=== PATIENT | female | born 1945 | race Caucasian/White ===

== ENCOUNTER 2017-06-07 10:10 | Emergency (ER) | payer MEDICARE ==
[2017-06-07] MEDS ORDERED: Sodium Chloride 0.9% 10 ML Syringe FLUSH PRN (10:23)
[2017-06-07] MEDS ORDERED: Ondansetron 4 MG/2 ML SDV IVPUSH ONE (10:25)
[2017-06-07] MEDS ORDERED: HYDROmorphone 2 MG/ML SDV IVPUSH ONE (10:25)
[2017-06-07] MEDS ORDERED: Sodium Chloride 0.9% 1,000 ML IV SCH (10:30)
[2017-06-07] MEDS ORDERED: Iopamidol 755 Mg/ML 100 ML Bottle IV ONE (11:44)
--- NOTE | 2017-06-07 12:03 | EDM.PDOC ---
ED HPI GENERAL MEDICAL PROBLEM - General Chief Complaint: Abdominal Pain Stated Complaint: STOMACH PAIN Time Seen by Provider: 06/07/17 10:10 Source of Information: Reports: Patient, Family History Limitations: Reports: No Limitations - History of Present Illness INITIAL COMMENTS - FREE TEXT/NARRATIVE: 71 y.o..f came to the ed with her son due to gen abd. pain and left lower back pain for several week. Her main complain is gen abd. pain. pt has her GB, appendix and both ovaries removed. BP 185/85 puls 71 BPM. No F/C. pt feels week and has a difficult time walking due to abd. pain. No blood in stool. Pt denied any other acute medical issues. Onset: Unknown/Unsure Onset Date: 06/03/17 Onset Time: 06:34 Duration: Week(s): Location: Reports: Abdomen Quality: Reports: Burning, Pressure, Same as Previous Episode Severity: Moderate Improves with: Reports: Medication Worsens with: Reports: None Context: Reports: Other (gen abd. pain and loose stool for weeks, no travel history) Associated Symptoms: Reports: Weakness, Other (diarrhea) Treatments [employer]: Reports: Other (see below) (Pt is on Nitrofurantoin for a UTI) abdomen Pain Score (Numeric/FACES): 8 - Related Data Allergies Allergy/AdvReac Type Severity Reaction Status Date / Time duloxetine [From Cymbalta] Allergy Vomiting Verified 06/07/17 11:23 iopamidol Allergy Airway Verified 06/07/17 12:16 Tightness Penicillins Allergy Rash Verified 06/07/17 11:23 Sulfa (Sulfonamide Allergy Rash Verified 06/07/17 11:23 Antibiotics) trimethoprim Allergy Vomiting Verified 06/07/17 11:23 Home Meds: Home Meds Aspirin [Lo-Dose Aspirin EC] 81 mg PO DAILY 06/07/17 [History] Atenolol [Tenormin] 75 mg PO DAILY 06/07/17 [History] Citalopram Hydrobromide [Celexa] 10 mg PO BEDTIME 06/07/17 [History] Insulin Degludec [Tresiba Flextouch U-100] 48 units SQ BEDTIME 06/07/17 [History ] L.acidoph,Paracasei, B.lactis [Probiotic] 1 each PO DAILY 06/07/17 [History] Losartan [Cozaar] 100 mg PO DAILY 06/07/17 [History] Multivitamin [Multivitamins] 1 each PO DAILY 06/07/17 [History] Nitrofurantoin Monohyd/M-Cryst [Macrobid 100 mg Capsule] 100 mg PO BID 06/07/17 [History] Omeprazole 20 mg PO DAILY 06/07/17 [History] Simvastatin [Zocor] 40 mg PO BEDTIME 06/07/17 [History] SitaGLIPtin [Januvia] 100 mg PO DAILY 06/07/17 [History] Vitamin B Complex 1 each PO DAILY 06/07/17 [History] amLODIPine [Norvasc] 2.5 mg PO DAILY 06/07/17 [History] ED ROS GENERAL - Review of Systems Review Of Systems: See Below Constitutional: Reports: Weakness HEENT: Reports: No Symptoms Respiratory: Reports: No Symptoms Cardiovascular: Reports: No Symptoms Endocrine: Reports: No Symptoms GI/Abdominal: Reports: Abdominal Pain (generalized) : Reports: No Symptoms Musculoskeletal: Reports: No Symptoms Skin: Reports: No Symptoms Neurological: Reports: No Symptoms Psychiatric: Reports: No Symptoms Hematologic/Lymphatic: Reports: No Symptoms Immunologic: Reports: No Symptoms ED EXAM, GI/ABD - Physical Exam Exam: See Below Exam Limited By: No Limitations General Appearance: Alert, WD/WN, Mild Distress Eyes: Bilateral: Normal Appearance Ears: Normal External Exam Nose: Normal Inspection Throat/Mouth: Normal Inspection, Normal Lips, Normal Voice, No Airway Compromise Head: Atraumatic, Normocephalic Neck: Normal Inspection, Supple, Non-Tender, Full Range of Motion Respiratory/Chest: No Respiratory Distress, Lungs Clear, Normal Breath Sounds Cardiovascular: Normal Peripheral Pulses, Regular Rate, Rhythm, No Edema, No Gallop GI/Abdominal Exam: Abnormal Bowel Sounds (hyperactive BS) (Female) Exam: Deferred Rectal (Female) Exam: Deferred Back Exam: Normal Inspection, Full Range of Motion Extremities: Normal Inspection, Normal Range of Motion, Non-Tender, No Pedal Edema, Normal Capillary Refill Neurological: Alert, Oriented, CN II-XII Intact, Normal Cognition, Normal Gait, No Motor/Sensory Deficits Psychiatric: Normal Affect, Normal Mood Skin Exam: Warm, Dry, Intact, Normal Color, No Rash Lymphatic: No Adenopathy Course - Vital Signs Text/Narrative:: 71 y.o..f came to the ed with her son due to gen abd. pain and left lower back pain for several week. Her main complain is gen abd. pain. pt has her GB, appendix and both ovaries removed. BP 185/85 puls 71 BPM. No F/C. pt feels week and has a difficult time walking due to abd. pain. No blood in stool. Pt denied any other acute medical issues. Pt stated she is allergic only to IV Iodine contrast material. Pt had a colonoscopy 20 years ago (?) PE: WNWD WF c/o gen abd. pain difficulty ambulating. Labs: CBC and BMP WNL, Stool WBC and Culture pending ImagingL CT abd. pelvis: NAD, possible Enteritis, as per Dr. Laughlin. Impression: Gen abd. pain with diarrhea. DDx: Enteritis, IBD TX: Dilaudid, Zofran Reexam: Improved. I have offered to take imodium for diarrhea, F/U with the PMD awaiting lab result and treat the symptoms accordingly Plan: D/C with instructions Last Recorded V/S: Last Vital Signs Temp 37.2 C 06/07/17 14:00 Pulse 62 06/07/17 14:00 Resp 16 06/07/17 14:00 BP 145/68 H 06/07/17 14:00 Pulse Ox 99 06/07/17 14:00 - Orders/Labs/Meds Orders: Active Orders 24 hr Category Date Time Status CDIFF TOXIN A+B GROUP [OP] Stat Lab 06/07/17 12:15 Received CULTURE-STOOL [MREF] Stat Lab 06/07/17 12:15 Received LACTOFERRIN, FECAL BY ZAKI [REF] Stat Lab 06/07/17 12:15 Received Peripheral IV Insertion Adult [OM.PC] Routine Oth 06/07/17 10:23 Ordered Labs: Laboratory Tests 06/07/17 06/07/17 06/07/17 Range/Units 10:30 10:30 10:30 WBC 11.1 (4.5-12.0) X10-3/uL RBC 4.43 (3.23-5.20) x10(6)uL Hgb 13.5 (11.5-15.5) g/dL Hct 39.4 (30.0-51.3) % MCV 88.9 (80-96) fL MCH 30.5 (27.7-33.6) pg MCHC 34.3 (32.2-35.4) g/dL RDW 12.2 (11.5-15.5) % Plt Count 167 (125-369) X10(3)uL MPV 9.6 (7.4-10.4) fL Neut % (Auto) 81.5 (46-82) % Lymph % (Auto) 12.8 L (13-37) % Hood % (Auto) 4.2 (4-12) % Eos % (Auto) 1 (1.0-5.0) % Baso % (Auto) 1 (0-2) % Neut # (Auto) 9.0 H (1.6-8.3) # Lymph # (Auto) 1.4 (0.6-5.0) # Hood # (Auto) 0.5 (0.0-1.3) # Eos # (Auto) 0.1 (0.0-0.8) # Baso # (Auto) 0.1 (0.0-0.2) # Sodium 139 (135-145) mmol/L Potassium 3.8 (3.5-5.3) mmol/L Chloride 107 (100-110) mmol/L Carbon Dioxide 26 (23-29) mmol/L BUN 8 (8-23) mg/dL Creatinine 0.8 (0.6-1.3) mg/dL Est Cr Clr Drug Dosing TNP Estimated GFR (MDRD) > 60 (>60) BUN/Creatinine Ratio 10.0 (9-20) Glucose 117 H (80-116) mg/dL Lactic Acid 1.2 (0.5-2.2) mmol/L Calcium 8.8 (8.6-10.2) mg/dL Total Bilirubin 0.7 (0.1-1.3) mg/dL Direct Bilirubin 0.2 (0.1-0.2) mg/dL AST 21 (5-27) IU/L ALT 19 (14-26) IU/L Alkaline Phosphatase 55 L (56-112) IU/L Total Protein 6.8 (6.0-8.0) g/dL Albumin 3.9 (3.2-4.6) g/dL Amylase 52 (28-100) U/L Meds: Medications Discontinued Medications Generic Name Dose Route Start Last Admin Trade Name Freq PRN Reason Stop Dose Admin Hydromorphone HCl 0.5 mg 06/07/17 10:25 06/07/17 11:20 Dilaudid IVPUSH 06/07/17 10:26 Not Given ONETIME ONE Sodium Chloride 1,000 mls @ 125 mls/hr 06/07/17 10:30 06/07/17 11:20 Normal Saline IV 125 mls/hr ASDIRECTED CHUCKY Administration Iopamidol 95 ml 06/07/17 11:44 06/07/17 12:15 Isovue-370 (76%) IV 06/07/17 11:45 Not Given . DIRECTED ONE Ondansetron HCl 8 mg 06/07/17 10:25 06/07/17 11:20 Zofran IVPUSH 06/07/17 10:26 8 mg ONETIME ONE Administration Sodium Chloride 10 ml 06/07/17 10:23 06/07/17 11:15 Saline Flush FLUSH 10 ml ASDIRECTED PRN Administration Keep Vein Open Departure - Departure Time of Disposition: 13:42 Disposition: Home, Self-Care 01 Condition: Good Clinical Impression: Diarrhea, Abdominal pain - Discharge Information Instructions: Diarrhea, Adult Referrals: PCP,Not In Area [Primary Care Provider] - Forms: ED Department Discharge Additional Instructions: Please f/u with your PMD in next 4-5 days. please take imodium for loose stool, please come back to the ed if your symptoms get worse acutely Care Plan Goals: Appointment with Irena at [facility] on WednesdayJun 11, at 1:30 pm - My Orders Last 24 Hours: My Active Orders 06/07/17 10:23 Peripheral IV Insertion Adult [OM.PC] Routine 06/07/17 12:15 CDIFF TOXIN A+B GROUP [OP] Stat CULTURE-STOOL [MREF] Stat LACTOFERRIN, FECAL BY ZAKI [REF] Stat - Assessment/Plan Last 24 Hours: My Active Orders 06/07/17 10:23 Peripheral IV Insertion Adult [OM.PC] Routine 06/07/17 12:15 CDIFF TOXIN A+B GROUP [OP] Stat CULTURE-STOOL [MREF] Stat LACTOFERRIN, FECAL BY ZAKI [REF] Stat
--- NOTE | 2017-06-07 15:31 | CT ---
INDICATION: Abdominal pain, left-sided now, with loose stools. Pain bilaterally also in the lower abdomen. CT ABDOMEN AND PELVIS WITH CONTRAST: Spiral 2.5-mm axial sections were obtained through the abdomen and pelvis with oral contrast only, there apparently being an iodinated dye allergy in this patient, with airway closing. Exam was 06/07/2017 and is compared with 04/12/2017. Total Exam DLP = 1154.95 mGy-cm. The lower lung santana and pleural spaces visualized again show some heavy markings at the lingula, likely fibrotic in nature, with no definite active infiltrate or effusion. The heart appears enlarged with calcifications in the area of the aortic valve. The gallbladder is absent, compatible with history of its removal. The liver had a normal appearance, as seen without IV contrast. The spleen, adrenals, and pancreas appear to be normal. The common bile duct was not enlarged. Renal fascial thickening is noted, compatible with minimal renal cortical scarring along with the areas of irregularity in the cortices of the kidneys, seen bilaterally. No definite evidence of obstructive uropathy was seen. No calculi were identified within the kidneys. Calcifications are noted at the origins of the renal arteries, and in the abdominal aorta, and minimally in the left renal artery. Phleboliths are noted in the pelvis. The uterus is absent, compatible with history of its removal. The bladder was unremarkable. In the head of the pancreas, there is a somewhat linear low-density area which is slightly more prominent than on the previous examination, but is of questionable significance. A definite mass lesion is not identified. No evidence of bowel obstruction was seen, with contrast after one hour seen in the rectum with stool in that area also noted. A few diverticula are noted in the distal descending, and proximal sigmoid colon , without definite evidence of diverticulitis. IMPRESSION: 1. Minimal diverticulosis coli without evidence of diverticulitis. 2. No evidence of bowel obstruction. 3. Post hysterectomy, post appendectomy, and post cholecystectomy. 4. Possible ASHD. 5. Renal cortical scarring. 6. Rapid flow of oral contrast through the bowel to the colon - rectum. Formed stool noted in rectum. CT PELVIS: Examination of the pelvis was obtained by CT, as noted above. The uterus and appendix are absent, compatible with history of their removal. Contrast is noted throughout the bowel, including the rectum, with formed stool noted in the rectum. The urinary bladder was unremarkable. Report was called to Dr. Henderson at 1257 hours, 06/07/2017. [facility]
[2017-06-07 17:22] VITALS: BP 145/68
== END 2017-06-07 14:05 | disposition home or self-care (01) ==
LOC: FB.ED 10:10
DX: R10.84 Generalized abdominal pain (principal); R19.7 Diarrhea, unspecified; Z88.0 Allergy status to penicillin; Z88.2 Allergy status to sulfonamides; Z88.8 Allergy status to other drugs, medicaments and biological substances; Z79.82 Long term (current) use of aspirin; Z79.4 Long term (current) use of insulin; Z79.899 Other long term (current) drug therapy
CPT/HCPCS: 36415; 74176; 80048; 80076; 82150; 83605; 83630; 85025; 87015; 87045; 87046; 87324; 87899; 96361; 96374; 99284; J2405; J7040; J7050